=== PATIENT | male | born 1955 | race Caucasian/White ===

== ENCOUNTER 2018-02-28 09:03 | Emergency (ER) | payer OTHER ==
--- NOTE | 2018-02-28 09:12 | CPEKG ---
Heart Rate: 73 RR Interval: 822 P-R Interval: 156 QRSD Interval: 104 QT Interval: 392 QTC Interval: 432 P [place]: 39 QRS [place]: -7 T Wave [place]: 68 EKG Severity - NORMAL ECG - EKG Impression: SINUS RHYTHM Electronically Signed By: Rocky Watson 28-Feb-2018 11:10:54
[2018-02-28] MEDS ORDERED: LIDOCAINE 2% VISCOUS 15 ML UDCUP PO ONE (09:16)
[2018-02-28] MEDS ORDERED: HYOSCYAMINE SULFATE 0.125 MG TAB PO ONE (09:16)
[2018-02-28] MEDS ORDERED: MAG HYDROX/AL HYDROX/SIMETH 30 ML UDCUP PO ONE (09:16)
[2018-02-28] MEDS ORDERED: ASPIRIN 81 MG CHEWABLE TAB PO ONE (09:16)
--- NOTE | 2018-02-28 09:25 | EDPHY ---
H & P Time Seen by Provider: 02/28/18 09:07 HPI/ROS: HPI Chest discomfort. 62-year-old male by private vehicle. He reports that for the last 2-3 weeks he has had what he describes as a chest cold including a mild sore throat and intermittent cough which she describes as nonproductive. He reports that since yesterday afternoon at approximately 2:00 p.m. He has had which he describes as a burning chest discomfort, like heartburn, left lower to mid anterior chest. He reports that it has been constant in nature but is better now. He reports only a low level of this discomfort currently. He was initially seen at urgent care was sent to the emergency department for evaluation. ROS: Constitutional: No fever, no chills. No weakness. Eyes: No discharge. No changes in vision. ENT: As above. No nasal congestion or rhinorrhea. Respiratory: As above. No shortness of breath. Cardiac: As above, no palpitations. Gastrointestinal: No abdominal pain, no vomiting, no diarrhea. Genitourinary: No hematuria. No dysuria or increased frequency with urination. Musculoskeletal: No back pain. No neck pain. No myalgias or arthralgias. Skin: No rashes. Neurological: No headache. No focal weakness or altered sensation. Past medical history: Hypertension, hyperlipidemia, coronary artery disease with multiple stents. Last stents placed about 10 years ago. His machinery mechanic is Dr. Kenney Rasheed. He last saw Kenney about 2 years ago. Social history: Nonsmoker. Social alcohol. Here by himself. Physical Exam: General Appearance: Alert, no distress. Large man, moderately obese. This patient is responding to questions appropriately and in full sentences. This patient appears well-hydrated and well-nourished. Eyes: Pupils equal and round no pallor or injection. No lid edema, erythema or injection. Respiratory: There are no retractions, lungs are clear to auscultation with good air movement bilaterally. Cardiovascular: Regular rate and rhythm. No murmur appreciated. Gastrointestinal: Abdomen is soft and nontender, no masses, bowel sounds normal. No focal tenderness at McBurney's point. No Montero sign. Neurological: Motor sensory function is grossly intact. Cranial nerves are normal. Gait is normal. Skin: Warm and dry, no rashes. Musculoskeletal: Neck is supple and nontender. Extremities are symmetrical. All joints range without pain or impingement. Psychiatric: No agitation. No depression. Database: EKG: EKG time is 9:11 a.m.; EKG shows a narrow complex normal sinus rhythm with a ventricular rate of 73. The AL, QRS, QT intervals are within normal limits. There are no ST-T wave changes indicative of ischemic or injury pattern. No evidence of right heart strain. Interpreted by me. Imaging: Chest x-ray PA and lateral; the cardiac mediastinal silhouette is unremarkable. No evidence of infiltrate or pneumothorax. No acute cardiopulmonary disease process noted. Interpreted by me. Procedures: Emergency department course: Vital signs reviewed. He is moderately hypertensive. Vital signs otherwise normal. IV was placed. He was given 324 mg of chewed aspirin. He has a low level of discomfort. He was given a GI cocktail to see if this alleviates his symptoms. His previous history of coronary artery disease and current presentation are concerning. EKG obtained and reviewed by myself. 10:20 a.m., patient re-evaluated. Resting comfortably at this time. No shortness of breath. No chest pain or discomfort. Results of his diagnostic workup discussed with him. He has a greater than 6 hr negative troponin. I discussed admission with him for observation and serial enzyme testing overnight. I discussed this in layman's terms. He declines admission. In my professional opinion he understands the risks of declining admission. The patient competently engages in shared decision making. They demonstrate capacitance to make decisions. He will follow up with his machinery mechanic within the next 3 days at [facility] for re-evaluation. Return to emergency department precautions have thoroughly been reviewed with him. All of his questions were answered. He was discharged in good condition. Differential Diagnosis: The differential diagnosis on this patient includes but is not limited to acute coronary syndrome, bronchitis, GERD. Pulmonary embolism, aortic dissection, pericarditis, myocarditis, pneumonia, pneumothorax unlikely. This represents a partial list of diagnoses considered. These considerations are based on history , physical exam, past history, reassessment and diagnostic testing. Smoking Status: Never smoked Constitutional: Initial Vital Signs Temperature (C) 36.9 C 02/28/18 09:07 Heart Rate 72 02/28/18 09:07 Respiratory Rate 16 02/28/18 09:07 Blood Pressure 163/91 H 05/21/18 09:07 O2 Sat (%) 93 02/28/18 09:07 O2 Delivery Mode Room Air Allergies/Adverse Reactions: No Known Allergies Allergy (Verified 02/28/18 09:11) Home Medications: Medication Instructions Recorded Amlodipine Besylate 10/26/15 CO Q-10 10/26/15 Lipitor 10/26/15 Lisinopril 10/26/15 Metoprolol Tartrate 10/26/15 Aspirin 02/28/18 Plavix 02/28/18 Medical Decision Making - Diagnostics Imaging Results: Imaging Impressions Chest X-Ray 02/28/18 09:16 Impression: Normal. - Data Points Laboratory Results: Laboratory Results 02/28/18 09:30 02/28/18 09:30 02/28/18 02/28/18 02/28/18 09:30 09:30 09:30 WBC 9.47 10^3/uL 10^3/uL (3.80-9.50) RBC 5.51 10^6/uL 10^6/uL (4.40-6.38) Hgb 16.0 g/dL g/dL (13.7-17.5) Hct 48.8 % % (40.0-51.0) MCV 88.6 fL fL (81.5-99.8) MCH 29.0 pg pg (27.9-34.1) MCHC 32.8 g/dL g/dL (32.4-36.7) RDW 14.3 % % (11.5-15.2) Plt Count 282 10^3/uL 10^3/uL (150-400) MPV 9.5 fL fL (8.7-11.7) Neut % (Auto) 65.3 % % (39.3-74.2) Lymph % (Auto) 23.8 % % (15.0-45.0) [place] % (Auto) 7.0 % % (4.5-13.0) Eos % (Auto) 2.9 % % (0.6-7.6) Baso % (Auto) 0.7 % % (0.3-1.7) Nucleat RBC Rel Count 0.0 % % (0.0-0.2) Absolute Neuts (auto) 6.19 10^3/uL 10^3/uL (1.70-6.50) Absolute Lymphs (auto) 2.25 10^3/uL 10^3/uL (1.00-3.00) Absolute Monos (auto) 0.66 10^3/uL 10^3/uL (0.30-0.80) Absolute Eos (auto) 0.27 10^3/uL 10^3/uL (0.03-0.40) Absolute Basos (auto) 0.07 10^3/uL 10^3/uL (0.02-0.10) Absolute Nucleated RBC 0.00 10^3/uL 10^3/uL (0-0.01) Immature Gran % 0.3 % % (0.0-1.1) Immature Gran # 0.03 10^3/uL 10^3/uL (0.00-0.10) PT 12.4 SEC SEC (12.0-15.0) INR 0.93 (0.83-1.16) APTT 25.6 SEC SEC (23.0-38.0) Sodium 142 mEq/L mEq/L (135-145) Potassium 4.3 mEq/L mEq/L (3.3-5.0) Chloride 104 mEq/L mEq/L (97-110) Carbon Dioxide 27 mEq/l mEq/l (22-31) Anion Gap 11 mEq/L mEq/L (8-16) BUN 17 mg/dL mg/dL (7-23) Creatinine 0.8 mg/dL mg/dL (0.7-1.3) Estimated GFR > 60 Glucose 97 mg/dL mg/dL (70-100) Calcium 10.0 mg/dL mg/dL (8.5-10.4) Creatine Kinase 195 IU/L IU/L (0-224) CK-MB (CK-2) Fraction 2.40 ng/mL ng/mL (0.00-4.55) Troponin I < 0.012 ng/mL ng/mL (0.000-0.034) Medications Given: Discontinued Medications Al Hydroxide/Mg Hydroxide (Maalox Susp) 30 ml PO ONCE ONE Stop: 02/28/18 09:17 Last Admin: 02/28/18 09:28 Dose: 30 ml Aspirin (Aspirin) 324 mg PO EDNOW ONE Stop: 02/28/18 09:17 Last Admin: 02/28/18 09:27 Dose: 324 mg Hyoscyamine Sulfate (Levsin, Hyomax-Sl) 0.25 mg PO ONCE ONE Stop: 02/28/18 09:17 Last Admin: 02/28/18 09:28 Dose: 0.25 mg Lidocaine (Lidocaine 2% Viscous) 15 ml PO ONCE ONE Stop: 02/28/18 09:17 Last Admin: 02/28/18 09:28 Dose: 15 ml Departure - Departure Disposition: [facility] Inpatient Acute Clinical Impression: Bronchitis, Chest discomfort Condition: Good Instructions: Chest Pain (ED), Acute Bronchitis (ED) Additional Instructions: Read and follow provided instructions. Follow-up with your machinery mechanic within the next 3 days for re-evaluation as discussed. Call for appointment this afternoon. Explain this is for an emergency department follow-up and you were seen in the emergency department today for chest discomfort. Take your medication as prescribed. Return to the emergency department for worsening symptoms, worsening chest discomfort or pain, shortness of breath or other serious concerns. Referrals: Kenney Rasheed MD [Medical Doctor] - As per Instructions
[2018-02-28 09:38] LABS: PLATELET COUNT 282 10^3/uL (150-400)
[2018-02-28 09:48] LABS: INR 0.93 (0.83-1.16); PROTIME(PATIENT) 12.4 SEC (12.0-15.0)
[2018-02-28 09:54] LABS: CREATINE KINASE 195 IU/L (0-224)
[2018-02-28 10:27] VITALS: BP 135/83
== END 2018-02-28 10:41 | disposition home or self-care (01) ==
LOC: CED 09:03
DX: R07.89 Other chest pain (principal); J40 Bronchitis, not specified as acute or chronic; I10 Essential (primary) hypertension; I25.10 Atherosclerotic heart disease of native coronary artery without angina pectoris; Z79.82 Long term (current) use of aspirin; Z95.5 Presence of coronary angioplasty implant and graft
CPT/HCPCS: 71046-PO; 80048-PO; 82550-PO; 82553-PO; 84484-PO; 85025-PO; 85610-PO; 85730-PO